=== PATIENT | female | born 1970 | race Caucasian/White ===

== ENCOUNTER 2022-06-23 10:14 | Emergency (ER) | payer SELFPAY ==
[2022-06-23] MEDS ORDERED: Sodium Chloride 0.9% 1,000 ML ONE ×2 (10:43→11:21)
[2022-06-23] MEDS ORDERED: Ondansetron PF 4 MG/2 ML Vial ONE (10:49)
[2022-06-23] MEDS ORDERED: diphenhydrAMINE 50 MG/ML VIAL ONE (11:21)
[2022-06-23] MEDS ORDERED: Ketorolac Tromethamine 30 MG/ML VIAL ONE (11:21)
[2022-06-23] MEDS ORDERED: Prochlorperazine 10 MG/2 ML VIAL ONE (11:21)
== END 2022-06-23 12:40 | disposition home or self-care (01) ==
LOC: MADERS 10:14
DX: G43.909 Migraine, unspecified, not intractable, without status migrainosus (principal)
CPT/HCPCS: 94760; 96361; 96365; 96375; J0780; J1200; J1885; J2405; J7050